=== PATIENT | female | born 1995 | race Caucasian/White ===

== ENCOUNTER 2023-02-07 15:00 | Outpatient (RCR) | payer MEDICAID, SELFPAY | END 2023-03-28 14:12 | disposition home or self-care (01) | LOC: HO.PT 15:00 | PROVIDERS: PCP Nurse Practitioner Family; Visit Provider Obstetrics & Gynecology Gynecologic Oncology | DX: Z85.44 Personal history of malignant neoplasm of other female genital organs (principal); Z92.3 Personal history of irradiation; N76.89 Other specified inflammation of vagina and vulva | CPT/HCPCS: 97110; 97112; 97140; 97162 ==